=== PATIENT | male | born 1995 ===

== ENCOUNTER 2022-03-22 15:10 | Emergency (ER) | payer SELFPAY ==
[2022-03-22 17:08] VITALS: BP 140/89
== END 2022-03-23 00:57 | disposition left against medical advice (07) ==
LOC: ED 15:10
DX: S61.419A Laceration without foreign body of unspecified hand, initial encounter (principal); Z53.21 Procedure and treatment not carried out due to patient leaving prior to being seen by health care provider; W45.8XXA Other foreign body or object entering through skin, initial encounter; Y93.89 Activity, other specified; Y92.89 Other specified places as the place of occurrence of the external cause; Y99.8 Other external cause status